=== PATIENT | male | born 1985 | race Caucasian/White ===

== ENCOUNTER 2020-07-28 18:51 | Emergency (ER) | payer SELFPAY ==
[~2020-07-28] VITALS: Ht 170.2 cm; Wt 97.5 kg
[2020-07-28 19:17] VITALS: BP 134/66
[2020-07-28] MEDS ORDERED: DEXAMETHASONE SOD PHOSPHATE 10 MG/ML VIAL ONE (19:51)
[2020-07-28] MEDS ORDERED: CYCLOBENZAPRINE 10 MG TABLET ONE (19:52)
[2020-07-28] MEDS ORDERED: KETOROLAC TROMETHAMINE INJ 60 MG/2 ML VIAL IM ONE (19:52)
[2020-07-28] MEDS: DEXAMETHASONE SOD PHOSPHATE 4 MG/ML VIAL IM ONE (20:02)
[2020-07-28] MEDS: CYCLOBENZAPRINE 10 MG TABLET PO ONE (20:03)
[2020-07-28] MEDS: KETOROLAC TROMETHAMINE INJ 60 MG/2 ML VIAL IM ONE (20:03)
--- NOTE | 2020-07-28 20:33 | NUR ---
Patient discharged to home in stable condition. Written and verbal after care instructions given. Patient verbalizes understanding of instruction.
--- NOTE | 2020-07-28 20:33 | NUR ---
pt. ambulatory with a steady gait
== END 2020-07-28 20:35 | disposition home or self-care (01) ==
LOC: ER 18:57
DX: S39.012A Strain of muscle, fascia and tendon of lower back, initial encounter (principal); X58.XXXA Exposure to other specified factors, initial encounter; Y93.89 Activity, other specified; Y92.89 Other specified places as the place of occurrence of the external cause; Y99.8 Other external cause status
CPT/HCPCS: 96372 ×2; 99284; J1100; J1885